=== PATIENT | female | born 1940 | race Two or more races ===

== ENCOUNTER 2024-05-13 09:29 | Emergency (ER) | payer MEDICARE, OTHER ==
[~2024-05-13] VITALS: Ht 160 cm; Wt 63.5 kg
[2024-05-13 09:37] VITALS: TEMP 97.4
[2024-05-13] MEDS ORDERED: ACETAMINOPHEN ES 500 MG TABLET ONE (10:43)
[2024-05-13] MEDS: ACETAMINOPHEN ES 500 MG TABLET PO ONE (11:08)
[2024-05-13] MEDS ORDERED: ACET-2605 PO (14:09)
[2024-05-13 14:38] VITALS: BP 136/65; O2SAT 99
== END 2024-05-13 14:28 | disposition home or self-care (01) ==
LOC: ER 09:38
DX: R51.9 Headache, unspecified (principal); M54.2 Cervicalgia; I10 Essential (primary) hypertension; E11.9 Type 2 diabetes mellitus without complications; V43.62XA Car passenger injured in collision with other type car in traffic accident, initial encounter; Y93.89 Activity, other specified; Y92.488 Other paved roadways as the place of occurrence of the external cause; Y99.8 Other external cause status
CPT/HCPCS: 70450-TC; 71045-TC; 72125-TC